=== PATIENT | female | born 1950 | race Caucasian/White ===

== ENCOUNTER 2019-10-29 08:02 | Emergency (ER) | payer MEDICARE, SELFPAY ==
[2019-10-29 08:03] VITALS: BP 112/91; PULSE 142; RESP 29; TEMP 36.1; O2SAT 98; BMI 25.0
--- NOTE | 2019-10-29 08:09 | ED.RN ---
NO OLD EKGS
--- NOTE | 2019-10-29 08:13 | EKG12_ITS ---
Test Reason : REPEAT Blood Pressure : / mmHG Vent. Rate : 069 BPM Atrial Rate : 069 BPM P-R Int : 172 ms QRS Dur : 078 ms QT Int : 414 ms P-R-T Axes : 046 -07 055 degrees QTc Int : 443 ms Normal sinus rhythm Normal ECG Confirmed by LAURA LOPEZ, PEDRO ([id number]), film or videotape editor CALE SCOTT ([id number]) on 11/02/2019 9:07:53 AM Referred By: ESTEBAN Confirmed By:PEDRO SANCHEZ MD
--- NOTE | 2019-10-29 08:14 | ED.DCSUM_ITS ---
History of Present Illness Chief Complaint: Palpitations Informant: Patient Onset: Today Current Severity: Moderate Maximum Severity: Moderate Narrative: Present secondary to tachycardia. She was seen by [facility] on line express. I received a phone call from that physician stating the patient had a history of atrial flutter and questionable [id number]. She woke at 130 this morning with heart rate of 160. She took 25 mg of metoprolol at 1:40 AM and another dose at 3:40 AM. When he evaluated her on lying her heart rate was still in the 130s. She denied chest pain or shortness of breath. She reports initial admission for this at [facility] approximately 6 years ago. Over the past 6 years she has had maybe 8 or 10 episodes that she has been able to get resolved on her own. - Past Medical History (1) Lexi's thyroiditis Status: Chronic (2) Tachycardia Status: Acute Past Medical History - Allergies and Home Meds Allergies/Adverse Reactions: Allergies ciprofloxacin [From Cipro] Allergy (Verified 10/29/19 08:07) Pain in joints Sulfa (Sulfonamide Antibiotics) Allergy (Verified 10/29/19 08:07) PT UNSURE OF REACTION Primary Care Physician: [facility] Doctor,Out of [NON-STAFF] - Prior records reviewed: Yes Review of Systems General: Denies: Chills, Fever Eyes: Denies: Visual changes - bilaterally Cardiovascular: Reports: Palpitations, Heart racing. Denies: Chest pain Respiratory: Denies: Dyspnea, Cough Gastrointestinal: Denies: Abdominal pain, Nausea, Vomiting, Diarrhea Genitourinary: Denies: Dysuria Musculoskeletal: Denies: Swelling, Extremity Pain Hematologic: Denies: Easy bruising, Easy bleeding Allergy: Denies: Uticaria Physical Exam Vital Signs/Narrative: Vital Signs Temp Pulse Resp BP Pulse Ox 10/29/19 08:03 97 F L 142 H 29 H 112/91 H 98 Inital Vital Signs reviewed: Yes General: Well nourished, Well developed Head: Normocephalic ENT: Moist mucous membranes Neck: Supple Cardiovascular: Tachycardia Respiratory: No distress, CTA bilaterally Abdomen: Soft, Nontender Skin: Normal color Neurological: Alert, Oriented x3 Psychological: Normal affect Diagnostic/Tx/Re-eval Laboratory Results 10/29/19 10/29/19 10/29/19 08:15 08:15 10:10 WBC 8.7 RBC 4.58 Hgb 13.8 Hct 40.1 MCV 87.6 MCH 30.1 MCHC 34.4 RDW Std Deviation 39.4 RDW Coeff of Kyle 12.5 Plt Count 218 MPV 9.6 Immature Gran % (Auto) 0.200 Neut % (Auto) 73.1 H Lymph % (Auto) 15.6 L Ballard % (Auto) 7.5 Eos % (Auto) 3.1 Baso % (Auto) 0.5 Absolute Neuts (auto) 6.4 Absolute Lymphs (auto) 1.36 Nucleated RBC % 0 Sodium 141 Potassium 4.0 Chloride 107 Carbon Dioxide 27.0 Anion Gap 7 BUN 20 H Creatinine 0.88 Estim Creat Clear Calc 58.07 Est GFR (MDRD) Af Amer 83 Est GFR (MDRD) Non-Af 69 BUN/Creatinine Ratio 22.9 H Glucose 118 H Calcium 8.8 Troponin I 0.055 H 0.147 H TSH 2.20 - EKG Initial EKG Interpretation: SVT - SVT at 144. She does appear to have delta waves noted. Follow-up EKG Interpretation: Sinus Rhythm - Sinus at 75 with no acute ischemia. - Medical Decision Making Patient was in SVT with heart rate in the 140s on arrival to the ER. While we were discussing treatment options patient spontaneously converted to a sinus rhythm with heart rate in the 80s. Initial troponin was mildly elevated at 0.055. This was repeated 2 hours later and is 0.147. I spoke with the patient's active directory administrator, Dr Iker Chavez at [facility]. He was able to review her records. He does want the patient to take 25 mg of metoprolol twice daily and call his office next week for a telehealth visit. Patient had no chest pain during this episode. This was discussed with patient she is comfortable with this plan. ED Disposition - Plan for ED Patient: Disposition: Home or Assisted Living Diagnosis: SVT (supraventricular tachycardia) Instructions: ED Tachycardia PAT Referrals: [facility],Out of [NON-STAFF] - Additional Instructions: I spoke with Dr Chavez. He would like you to take Metoprolol 25mg twice a day. Call his office to arrange a telehealth visit next week. Return to the ED for any further symptoms or concerns.
--- NOTE | 2019-10-29 08:16 | EKG12_ITS ---
Test Reason : REPEAT Blood Pressure : / mmHG Vent. Rate : 075 BPM Atrial Rate : 075 BPM P-R Int : 172 ms QRS Dur : 080 ms QT Int : 380 ms P-R-T Axes : 055 -06 053 degrees QTc Int : 424 ms Normal sinus rhythm Normal ECG Confirmed by PEDRO SANCHEZ MD ([id number]), editor map CALE SCOTT ([id number]) on 11/02/2019 9:08:08 AM Referred By: ESTEBAN Confirmed By:PEDRO SANCHEZ MD
[2019-10-29] MEDS: 0.9% Normal Saline 1,000 ML 999 ML IV (08:30)
[2019-10-29 08:37] LABS: Absolute Lymphocyte Count 1.36 X10^3/uL (0.83-4.51); Absolute Neutrophil Count 6.4 X10^3/uL (2.0-7.7); Basophil# 0.04 X10^3/uL; Basophil% 0.5 % (0-1); Eosinophil# 0.27 X10^3/uL; Eosinophils% 3.1 % (0-5); Hematocrit 40.1 % (37-47); Hemoglobin 13.8 g/dL (12.0-15.0); Lymphocyte # 1.36 X10^3/ul (4.0); Lymphocyte % 15.6 % (19-41); Mean Corp Hgb Conc 34.4 g/dL (32-36); Mean Corpuscular Hgb 30.1 pg (27.0-32.0); Mean Corpuscular Volume 87.6 fL (81-99); Mean Platelet Vol. 9.6 fl (6.2-12.0); Monocyte# 0.65 X10^3/uL; Monocyte% 7.5 % (0-10); NRBC Flagged by Analyzer 0 % (0-5); Neutrophil # 6.36 X10^3/uL (2.7-7.7); Neutrophil % 73.1 % (47-70); Platelet Count 218 K/mm3 (150-450); RBC Distribution Width CV 12.5 % (11.6-14.6); RBC Distribution Width SD 39.4 fl (35.1-43.9); Red Blood Count 4.58 M/mm3 (4.2-5.4); White Blood Count 8.7 K/mm3 (4.4-11.0)
[2019-10-29 08:59] LABS: Anion Gap 7 (5-15); BUN 20 mg/dL (7-18); BUN/Creat Ratio 22.9 RATIO (10-20); Calcium,Total 8.8 mg/dL (8.5-10.1); Chloride 107 mmol/L (98-107); Creatinine, Serum 0.88 mg/dL (0.55-1.02); EST Glomerular Filtration Rate 69 mL/min (>60); Est Glom Filt Rate - Afr Amer 83 mL/min (>60); Estimated Creatinine Clearance 58.07 ml/min; Glucose 118 mg/dL (74-106); Sodium Level 141 mmol/L (136-145)
[2019-10-29 09:41] VITALS: BP 102/66; PULSE 58; RESP 12; O2SAT 99
[2019-10-29 10:00] VITALS: BP 92/65; PULSE 60; RESP 14; O2SAT 99
--- NOTE | 2019-10-29 10:15 | EKG12_ITS ---
Test Reason : TACHY Blood Pressure : / mmHG Vent. Rate : 144 BPM Atrial Rate : 147 BPM P-R Int : 000 ms QRS Dur : 112 ms QT Int : 342 ms P-R-T Axes : 000 007 073 degrees QTc Int : 529 ms Supraventricular tachycardia Septal infarct , age undetermined Abnormal ECG Confirmed by LAURA LOPEZ, PEDRO ([id number]), medical transcription editor CALE SCOTT ([id number]) on 11/02/2019 9:08:22 AM Referred By: ESTEBAN Confirmed By:PEDRO SANCHEZ MD
[2019-10-29 11:04] VITALS: BP 115/66; PULSE 65; RESP 18; O2SAT 100
== END 2019-10-29 11:29 | disposition home or self-care (01) ==
PROVIDERS: Emergency Provider Emergency Medicine
DX: I47.1 Supraventricular tachycardia (principal); I48.92 Unspecified atrial flutter; E06.3 Autoimmune thyroiditis; R79.89 Other specified abnormal findings of blood chemistry; Z79.899 Other long term (current) drug therapy; Z88.2 Allergy status to sulfonamides; Z88.1 Allergy status to other antibiotic agents
CPT/HCPCS: 80048; 84443; 84484; 85025; 93005; 96360; 99284; J7030; A4216